=== PATIENT | male | born 1955 | race African-American/Black ===

== ENCOUNTER 2017-01-18 16:52 | Emergency (ER) | payer BC ==
[~2017-01-18] VITALS: Ht 172.7 cm; Wt 92.5 kg
[~2017-01-18 16:52] MED LIST: HYD25 PO; IBUP-1542 PO
[2017-01-18 16:53] VITALS: Ht 172.7 cm; Wt 92.5 kg
--- NOTE | 2017-01-18 17:13 | ERD ---
ER Documentation Chief Complaint Date/Time DATE: 01/18/17 TIME: 17:11 Chief Complaint lower back pain radiating to the right leg x 2 days HPI This pleasant 61-year-old male patient presents to emergency department today with back pain radiating down his right leg pain is described as a burning numbness, symptoms started 2 days ago. Patient reports that he has been symptomatic for back pain for the last 6 months, denies any alteration in bowel or bladder but reports ambulating with a limp. States his leg feels numb at times. Pain with ambulating is 10 out of 10. Patient has seen his primary physician has not had any imaging done at this point has been given Winston with little relief of symptoms. 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 ROS All systems reviewed and are negative except as per history of present illness. Medications Home Meds Active Scripts Ibuprofen* (Ibuprofen*) 600 Mg Tablet, 600 MG PO Q6 for PAIN, #30 TAB Prov:SAPPHIRE FINLEY 11/21/14 Hydrochlorothiazide* (Hydrochlorothiazide*) 25 Mg Tab, 25 MG PO DAILY, #30 TAB Prov:KARELY FINLEYSON 11/21/14 Allergies Allergies: Coded Allergies: No Known Allergy (Unverified , 11/21/14) PMhx/Soc Hx Cardiac Disorders: Yes (HTN) Hx Alcohol Use: No Hx Substance Use: No Hx Tobacco Use: No Physical Exam Vitals Vital Signs Date Time Temp Pulse Resp B/P Pulse Ox O2 Delivery O2 Flow Rate FiO2 01/18/17 16:53 98.5 70 18 188/83 99 Vitals stable, triage notes reviewed, patient blood pressure is noted to be hypertensive at 188/83 Physical Exam Const: Well-nourished, well appearing, obvious discomfort no acute distress. Head: Atraumatic Eyes: Normal Conjunctiva, PERRLA, EOMI ENT: Normal External Ears, Nose and Mouth. Mucous membranes moist Neck: Full range of motion.. Resp: Respirations even and unlabored no respiratory Cardio: Abd: Soft, non tender, non distended. Normal bowel sounds, no CVAT Skin: No petechiae or rashes Back: Back Exam: Skin: No bruising or rash Compartments: Soft Motor: Normal flexion and extension of bilateral hip/knee/ ankle/foot, patient ambulating with a right-sided limp. Sensation: Intact to light touch throughout Bones: No midline TTP Ext: No cyanosis, or edema Neur: Awake and alert Psych: Normal Mood and Affect Results 24 hrs Current Medications Medications (Trade) Dose Ordered Sig/Randell Route PRN Reason Start Time Stop Time Status Last Admin Dose Admin Ketorolac Tromethamine (Toradol) 60 mg ONCE STAT IM 01/18/17 17:14 01/18/17 17:16 DC Diazepam (Valium) 5 mg ONCE ONCE PO 01/18/17 17:30 01/18/17 17:31 DC 01/18/17 18:16 Ketorolac Tromethamine (Toradol) 30 mg ONCE STAT IM 01/18/17 17:16 01/18/17 17:17 DC 01/18/17 18:16 Procedures/MDM PROCEDURE: XR Lumbar Spine. CLINICAL INDICATION: Lumbar spine pain. TECHNIQUE: AP, lateral, and cone-down lateral view of the lumbar spine were obtained. COMPARISON: No prior studies are available for comparison. FINDINGS: There is 2 mm of retrolisthesis of L2 on L3 and L3 on L4. There are anterior osteophytes from L1-S1 with moderate narrowing of the intervertebral disc spaces at L 23, 45 and L5-S1 and mild disc-space narrowing at L1-2 and L3-4. There are moderate associated discogenic endplate changes at L2-3, L4-5 and L5- S1. The vertebral body heights and marrow density are normal in appearance. There is moderate facet spondylosis at L3-4, L4-5 and L5-S1 with suggestion of neural foraminal narrowing at these levels. The remaining neural foramina appear patent. The paraspinal soft tissues unremarkable. There is no evidence of fracture. There are mild degenerative changes of the interspinous articulations from L2-L5. IMPRESSION: 1. Moderate to severe spondylosis/degenerative enthesopathy at L2-3, L4-5 and L5-S1. 2. Moderate facet spondylosis at L3-4, L4-5 and L5-S1 with suggestion of neural foraminal narrowing at these levels. 3. No evidence of fracture. Electronically viewed and signed by .Diallo Salaamnca MD, on 01/18/2017 18: 28 This 61-year-old male patient presents to emergency department for back pain, back pain has been reported chronic for the last 6 months with worsening over the last 2 days, left-sided sciatica and leg numbness, pain 10 out of 10. Patient does not have alteration in bowel or bladder but is ambulating with limp. Little suspicion for cauda equina syndrome, spinal abscess or mass. Urinary tract infection is unlikely urinalysis shows trace leukocytes, no nitrates or microscopic hematuria, positive WBCs. 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 Lumbar x-ray documents moderate to severe spondylosis/degenerative enthesopathy at L2-3, L4-5 and L5-S1, moderate facet spondylosis at L3-4, L4-5, and L5-S1 with suggestions of neural foraminal narrowing at these levels. No evidence of fracture. Patient treated in emergency department with Toradol, Valium, patient reassessed after 30 minutes with little change, patient receives 4 mg of intramuscular morphine, Zofran, is discharged home with Winston 10 for severe pain greater than 5/10 on pain scale, Ultram, and Valium. Patient given information to follow-up at orthopedics center. Or primary care physician for referral if needed. Return to emergency department for alteration in bowel or bladder, incontinence, inability to move left leg. I feel the patient is stable for discharge at this time. I have discussed results, examination findings, the treatment plan with the patient and family present prior to discharge. Indications for emergent reevaluation, side effects of medication were also discussed. All questions were answered. Patient verbalizes understanding and agrees with plan of care. Departure Diagnosis: Primary Impression: DDD (degenerative disc disease), lumbar Additional Impression: Back pain Back pain location: low back pain Chronicity: chronic Back pain laterality : right Sciatica presence: with sciatica Sciatica laterality: sciatica of right side Qualified Code: M54.41 - Chronic right-sided low back pain with right-sided sciatica Condition: Good Patient Instructions: Osteoarthritis, Osteoarthritis: Managing Pain Referrals: [facility] Additional Instructions: Thank you for for coming to [facility] for your care today. Please ask your nurse or provider if you have questions about your care today and do not leave until all your questions have been answered. Please use any medications given as directed and follow-up with your doctor (or the doctor you were referred to) in the next 2-3 days. If you do not have a primary care doctor you may follow up at the [facility] (listed below). You may also use motrin and tylenol as needed for fever and/or pain unless instructed otherwise by your provider or nurse. Indications for more urgent follow-up have been discussed, but you may return to the Emergency Department at ANY time for any worrisome or worsening symptoms. If you have abdominal pain, please know that no test or exam you received is perfect and you should follow up within 8 hours for continued pain. If you had any imaging studies today, such as an X-Ray or CT Scan, these studies will be reviewed later by a radiologist. You will be called if there are important findings that were not identified today, so make sure the contact information you provided at registration is correct. If you received any narcotic pain control medicine today, such as Vicodin, Morphine or Dilaudid, your coordination and judgment may be affected for a number of hours. Please do not drive or operate heavy machinery, and you may want someone to assist you at home. If you were given a prescription for narcotic medication, be aware that it is very addictive- use sparingly and only if necessary. HEIDI RODRÍGUEZ Jan 18, 2017 17:13
[2017-01-18] MEDS ORDERED: KETOROLAC 60 MG INJ IM STA ×2 (17:14→17:16)
[2017-01-18] MEDS ORDERED: DIAZEPAM 5 MG TAB PO ONE (17:30)
--- NOTE | 2017-01-18 18:28 | RADRPT ---
PROCEDURE: XR Lumbar Spine. CLINICAL INDICATION: Lumbar spine pain. TECHNIQUE: AP, lateral, and cone-down lateral view of the lumbar spine were obtained. COMPARISON: No prior studies are available for comparison. FINDINGS: There is 2 mm of retrolisthesis of L2 on L3 and L3 on L4. There are anterior osteophytes from L1-S1 with moderate narrowing of the intervertebral disc spaces at L 23, 45 and L5-S1 and mild disc-space narrowing at L1-2 and L3-4. There are moderate associated discogenic endplate changes at L2-3, L4-5 and L5-S1. The vertebral body heights and marrow density are normal in appearance. There is modera te facet spondylosis at L3-4, L4-5 and L5-S1 with suggestion of neural foraminal narrowing at these levels. The remaining neural foramina appear patent. The paraspinal soft tissues unremarkable. Th ere is no evidence of fracture. There are mild degenerative changes of the interspinous articulatio ns from L2-L5. IMPRESSION: 1. Moderate to severe spondylosis/degenerative enthesopathy at L2-3, L4-5 and L5-S1. 2. Moderate facet spondylosis at L3-4, L4-5 and L5-S1 with suggestion of neural foraminal narrowing at these levels. 3. No evidence of fracture. RPTAT: HGAS .Diallo Salamanca MD, Date Time Electronically viewed and signed by .Diallo Salamanca MD, on 01/18/2017 18:28 .S/
[2017-01-18] MEDS ORDERED: ONDANSETRON (ODT) 4 MG TAB ODT STA (19:30)
[2017-01-18] MEDS ORDERED: morphine 10 MG INJ IM ONE (19:30)
[2017-01-18] MEDS ORDERED: TRAM50TA2 PO (19:38)
[2017-01-18] MEDS ORDERED: HYDR-902 PO (19:38)
[2017-01-18] MEDS ORDERED: DIAZ-90 PO (19:39)
== END 2017-01-18 19:54 | disposition home or self-care (01) ==
LOC: FTE 16:52
DX: M51.36 Other intervertebral disc degeneration, lumbar region (principal); M54.41 Lumbago with sciatica, right side; I10 Essential (primary) hypertension
CPT/HCPCS: 72100; 96372; 99284; J1885; J2270

== ENCOUNTER 2017-02-08 21:18 | Emergency (ER) | payer BC ==
[~2017-02-08] VITALS: Ht 172.7 cm; Wt 98.5 kg
[~2017-02-08 21:18] MED LIST changes: +DIAZ-90 PO; +HYDR-902 PO; +TRAM50TA2 PO
[2017-02-08 21:26] VITALS: Ht 172.7 cm; Wt 98.5 kg
--- NOTE | 2017-02-08 22:47 | ERD ---
ER Documentation Chief Complaint Date/Time DATE: 02/08/17 TIME: 22:44 Chief Complaint right lower back pain radiating to his right leg HPI Exterior male presents here in emergency department for complaints of right lower back pain radiating to the right lower leg that started one month ago, worsening last 2 weeks, patient was seen here in emergency department, was diagnosed of degenerative disc disease. Patient states that pain continues to persist, patient did not take the Hertel for home and took Valium but not really dizzy with it. Patient continues to have the pain throbbing pain 6/10 scale, not better or worse with anything. Patient denies any numbness or tingling. Patient denies any fever or chills. Patient denies any incontinence. Patient denies any direct trauma in the back. Patient works as a [employer]. ROS All systems reviewed and are negative except as per history of present illness. Medications Home Meds Active Scripts Diazepam* (Valium*) 5 Mg Tablet, 5 MG PO Q8 for myopathy, #10 TAB Prov:MARCOS,HEIDI 01/18/17 Tramadol HCl (Tramadol HCl) 50 Mg Tablet, 50 MG PO Q6 Y for PAIN, #20 TAB Prov:MARCOS,HEIDI 01/18/17 Hydrocodone/Acetaminophen (Hertel 10-325 Tablet) 1 Each Tablet, 1 TAB PO Q6H Y for PAIN, #7 TAB Prov:MARCOS,HEIDI 01/18/17 Ibuprofen* (Ibuprofen*) 600 Mg Tablet, 600 MG PO Q6 for PAIN, #30 TAB Prov:SAPPHIRE FINLEY 11/21/14 Hydrochlorothiazide* (Hydrochlorothiazide*) 25 Mg Tab, 25 MG PO DAILY, #30 TAB Prov:SAPPHIRE FINLEY 11/21/14 Allergies Allergies: Coded Allergies: No Known Allergy (Unverified , 02/08/17) PMhx/Soc Medical and Surgical Hx: pt denies Surgical Hx Hx Cardiac Disorders: Yes (HTN) Hx Alcohol Use: No Hx Substance Use: No Hx Tobacco Use: No Smoking Status: Never smoker FmHx Family History: No coronary disease, No diabetes, No other Physical Exam Vitals Vital Signs Date Time Temp Pulse Resp B/P Pulse Ox O2 Delivery O2 Flow Rate FiO2 02/08/17 21:26 97.0 77 18 166/90 100 Physical Exam GENERAL: The patient is well developed and appropriate for usual state of health, in no apparent distress. CHEST: Clear to auscultation bilaterally. There are no rales, wheezes or rhonchi. HEART: Regular rate and rhythm. No murmurs, clicks, rubs or gallops. No S3 or S4. ABDOMEN: Soft, nontender and nondistended. Good bowel sounds. No rebound or guarding. No gross peritonitis. No gross organomegaly or masses. No Herndon sign or McBurney point tenderness. BACK: No midline or flank tenderness. Noted + right straight leg test EXTREMITIES: Equal pulses bilaterally. There is no peripheral clubbing, cyanosis or edema. No focal swelling or erythema. Full range of motion. Grossly neurovascularly intact. NEURO: Alert and oriented. Cranial nerves 2-12 intact. Motor strength in all 4 extremities with 5/5 strength. Sensation grossly intact. Normal speech and gait. SKIN: There is no apparent rash or petechia. The skin is warm and dry. HEMATOLOGIC AND LYMPHATIC: There is no evidence of excessive bruising or lymphedema. No gross cervical, axillary, or inguinal lymphadenopathy. Results 24 hrs Current Medications Medications (Trade) Dose Ordered Sig/Randell Route PRN Reason Start Time Stop Time Status Last Admin Dose Admin Acetaminophen/ Hydrocodone Bitart (Hertel (10/325)) 1 tab ONCE ONCE PO 02/08/17 23:00 02/08/17 23:01 DC 02/08/17 23:02 Patient was given medication for pain here in emergency department, after treatment, patient verbalized feeling much better. Patient's pain is improved. PROCEDURE: CT lumbar spine without contrast CLINICAL INDICATION: Back pain. TECHNIQUE: A CT scan of the lumbar spine was performed without intravenous contrast. Coronal and sagittal reformatted images were generated. CTDIvol: 35.49 mGy. DLP: 974.40 mGy-cm. One or more of the following dose reduction techniques were used: - Automated exposure control. - Adjustment of the mA and/or kV according to patient size. - Use of iterative reconstruction technique. COMPARISON: None. FINDINGS: The lumbar lordosis is preserved without spondylolisthesis. The vertebral body heights are maintained. Bone mineralization is normal and there is no suspicious osseous lesion. No fracture or subluxation is identified. T12-L1: There is no significant degenerative change. No spinal canal stenosis or neural foraminal narrowing is seen. L1-L2: Circumferential disk bulging and endplate osteophytosis lead to mild spinal canal stenosis (9 mm AP canal diameter). There is mild to moderate bilateral neural foraminal narrowing due to disk bulging endplate osteophytosis. Mild to moderate bilateral facet arthrosis is noted. L2-L3: There is vacuum disk phenomenon, circumferential disk bulging, endplate osteophytosis, leading to mild spinal canal stenosis (9 mm AP canal diameter). Mild to moderate bilateral neural foraminal narrowing is noted due to disk bulging and endplate osteophytosis. There is mild to moderate facet arthrosis. L3-L4: Circumferential disk bulging and prominent dorsal epidural fat lead to moderate spinal canal stenosis (7 mm AP canal diameter). There is mild to moderate bilateral neural foraminal narrowing due to disk bulging and endplate osteophytosis L4-L5: There is vacuum disk phenomenon and circumferential disk bulging, leading to mild spinal canal stenosis (9 AP canal diameter). There is moderate right and mild to moderate left neural foraminal narrowing due to disk bulging and endplate osteophytosis. Mild to moderate facet arthrosis is noted. L5-S1: There is vacuum disk phenomenon, circumferential disk bulging, and endplate osteophytosis. These lead to mild spinal canal stenosis (9 mm AP canal diameter). There is moderate bilateral neural foraminal narrowing due to disk bulging and endplate osteophytosis. There are minimal atherosclerotic arterial calcifications. IMPRESSION: 1. No acute lumbar spine fracture or subluxation. 2. Moderate spinal canal stenosis at L3-L4. 3. Mild spinal canal stenosis at the remaining lumbar levels. 4. Moderate neural foraminal narrowings on the right at L4-L5 and bilaterally at L5-S1. RPTAT: HTAR .Miki Esparza MD, MD Date Time Electronically viewed and signed by .Miki Esparza MD, on 02/09/2017 00:14 Procedures/MDM Medical Decision Making: Patient's pain is most likely consistent with a back pain with sciatica caused degenerative disc disease. There is no suspicion for neurovascular compromise. Patient has intact sensation and circulation of the affected extremity and distal extremities. No incontinence, no suspicion for cauda equina syndrome, no saddle anesthesia, no symptoms of any acute bacterial infection, no symptoms of any perirectal abscesses, pilonidal cyst.There is low suspicion for septic arthritis. Patient does not have any fever. No symptoms of any aortic dissection or aortic aneurysm. Radiology exam not show any fractures or dislocation. Disposition: Home. Patient is given prescription for ibuprofen for mild to moderate pain, prednisone, continue Hertel Gabapentin. Patient was advised to avoid heavy lifting , apply warm compresses on affected area. Patient was advised that if symptoms are worse, numbness, tingling, high fever, unable to move joint, worsening symptoms, to return to emergency department immediately. Otherwise, patient is advised to follow up with the primary care doctor in 5-7 days for reevaluation of symptoms. Departure Diagnosis: Primary Impression: Back pain Back pain location: low back pain Chronicity: acute Back pain laterality: bilateral Sciatica presence: with sciatica Sciatica laterality: sciatica of right side Qualified Code: M54.41 - Acute bilateral low back pain with right- sided sciatica Additional Impression: Degenerative disc disease Spinal region: lumbosacral Qualified Code: M51.37 - Degeneration of intervertebral disc of lumbosacral region Condition: Stable Patient Instructions: Back Pain W/ Sciatica, Degenerative Disk Disease Additional Instructions: Patient is given prescription for ibuprofen for mild to moderate pain, prednisone, continue Hertel Gabapentin. Patient was advised to avoid heavy lifting , apply warm compresses on affected area. Patient was advised that if symptoms are worse, numbness, tingling, high fever, unable to move joint, worsening symptoms, to return to emergency department immediately. Otherwise, patient is advised to follow up with the primary care doctor in 5-7 days for reevaluation of symptoms. CHANTELL DALE NP Feb 08, 2017 22:45
[2017-02-08] MEDS ORDERED: HYDROCODONE/APAP (10/325) TAB PO ONE (23:00)
--- NOTE | 2017-02-09 00:15 | RADRPT ---
PROCEDURE: CT lumbar spine without contrast CLINICAL INDICATION: Back pain. TECHNIQUE: A CT scan of the lumbar spine was performed without intravenous contrast. Coronal and s agittal reformatted images were generated. CTDIvol: 35.49 mGy. DLP: 974.40 mGy-cm. One or more of the following dose reduction techniques were used: - Automated exposure control. - Adjustment of the mA and/or kV according to patient size. - Use of iterative reconstruction technique. COMPARISON: None. FINDINGS: The lumbar lordosis is preserved without spondylolisthesis. The vertebral body heights are maintain ed. Bone mineralization is normal and there is no suspicious osseous lesion. No fracture or sublux ation is identified. T12-L1: There is no significant degenerative change. No spinal canal stenosis or neural foraminal n arrowing is seen. L1-L2: Circumferential disk bulging and endplate osteophytosis lead to mild spinal canal stenosis (9 mm AP canal diameter). There is mild to moderate bilateral neural foraminal narrowing due to disk b ulging endplate osteophytosis. Mild to moderate bilateral facet arthrosis is noted. L2-L3: There is vacuum disk phenomenon, circumferential disk bulging, endplate osteophytosis, leadin g to mild spinal canal stenosis (9 mm AP canal diameter). Mild to moderate bilateral neural foramin al narrowing is noted due to disk bulging and endplate osteophytosis. There is mild to moderate fac et arthrosis. L3-L4: Circumferential disk bulging and prominent dorsal epidural fat lead to moderate spinal canal stenosis (7 mm AP canal diameter). There is mild to moderate bilateral neural foraminal narrowing d ue to disk bulging and endplate osteophytosis L4-L5: There is vacuum disk phenomenon and circumferential disk bulging, leading to mild spinal wilder l stenosis (9 AP canal diameter). There is moderate right and mild to moderate left neural foramina l narrowing due to disk bulging and endplate osteophytosis. Mild to moderate facet arthrosis is not ed. L5-S1: There is vacuum disk phenomenon, circumferential disk bulging, and endplate osteophytosis. T hese lead to mild spinal canal stenosis (9 mm AP canal diameter). There is moderate bilateral neura l foraminal narrowing due to disk bulging and endplate osteophytosis. There are minimal atherosclerotic arterial calcifications. IMPRESSION: 1. No acute lumbar spine fracture or subluxation. 2. Moderate spinal canal stenosis at L3-L4. 3. Mild spinal canal stenosis at the remaining lumbar levels. 4. Moderate neural foraminal narrowings on the right at L4-L5 and bilaterally at L5-S1. RPTAT: HTAR .Miki Esparza MD, Date Time Electronically viewed and signed by .Miki Esparza MD, on 02/09/2017 00:14 .R/
[2017-02-09] MEDS ORDERED: PRED50TA PO (00:23)
[2017-02-09] MEDS ORDERED: IBUP-1542 PO (00:23)
[2017-02-09] MEDS ORDERED: GABA300C16 PO (00:23)
== END 2017-02-09 00:34 | disposition home or self-care (01) ==
LOC: FTE 21:18
DX: M54.41 Lumbago with sciatica, right side (principal); M51.37 Other intervertebral disc degeneration, lumbosacral region; I10 Essential (primary) hypertension
CPT/HCPCS: 72131